=== PATIENT | male | born 1935 | race Caucasian/White ===

== ENCOUNTER 2020-07-23 13:15 | Emergency (ER) | payer MEDICARE ==
--- NOTE | 2020-07-23 13:54 | PCM.SN.2 ---
- Free Text/Narrative Note: ANESTHESIA SERVICES Date: 07/23/2020 Time: 1300 to 1317 Dx: Active Cardio-Pulmonary Resuscitation in progress Rx: Failed Resuscitation Procedure: Anesthesia Standby [[id number]] per physician / protocol request. Upon arrival of the ambulance, active CPR was in progress. The patient had an I -Gel airway device with 100% O2 per Ambu-bag in place with bilateral breath sounds. No active patient spontaneous respirations. Both eyes were dilated and non-responsive. No right Carotid pulse was felt without CPR. No emesis was seen in either the mouth or I-Gel. The ED physician checked for heart tones. The ECG was agonal without active CPR. The patient was declared by the ED physician. Sandor Gates CRNA, A
--- NOTE | 2020-07-26 20:33 | EDM.PDOC ---
ED [facility] GENERAL MEDICAL PROBLEM - General Chief Complaint: CPR in Progress Stated Complaint: CARDIAC ARREST Time Seen by Provider: 07/23/20 13:15 Source of Information: Reports: Patient History Limitations: Reports: No Limitations - History of Present Illness INITIAL COMMENTS - FREE TEXT/NARRATIVE: Patient is an 84 YO WM who presented to the ED via EMS with a witnessed cardiac arrest while he was at the [facility] at about 12:20 pm. CPR was started by bystanders and when EMS arrived at the scene patient was on PEA. Igel and I/O was inserted, CPR was continued, and en route to the ED patient was given 3 doses of epi and there was brief ROSC which was later lost. He arrived in the ED at 1315 and he is still on PEA, cold, cyanotic with fixed dilated pupil and no spontaneous breathing. 1 more round of resuscitation was done in the ED and since there was almost an hour of resuscitation, continuing it further deem futile and unnecessary. I did talked to the and family members and agreed to stop the resuscitation effort. Patient was pronounced at 1317. 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: CPR, IV/IO, Other Medication(s), Oxygen - Related Data Allergies Allergy/AdvReac Type Severity Reaction Status Date / Time No Known Allergies Allergy Verified 07/23/20 15:32 Home Meds: Home Meds Hydrochlorothiazide 25 mg PO DAILY 06/01/15 [History] Moexipril HCl [Moexipril] 15 mg PO DAILY 06/01/15 [History] atorvaSTATin [Lipitor] 20 mg PO DAILY 06/01/15 [History] Past Medical History Cardiovascular History: Reports: High Cholesterol, Hypertension Oncologic (Cancer) History: Reports: Colon ED ROS GENERAL - Review of Systems Review Of Systems: Unable To Obtain Reason Not Obtained: patien is on arrival ED EXAM, CPR - Physical Exam Exam: See Below General Appearance: Other (cyanotic) Eye Exam: Bilateral Eye: Other (Pulpils are fixed and dilated) Head: Atraumatic, Normocephalic Neck: Other (No carotid pulse) Respiratory Chest: Other (No spontaneous breathing) Cardiovascular: Other (No heart beat) GI/Abdominal Exam: Other (Absent bowel sound) Extremities: Other (cold and rigid) Skin Exam: Cyanosis Course - Vital Signs Text/Narrative:: see details of resuscitation under HPI Departure - Departure Time of Disposition: 13:20 Disposition: 20 Preliminary Cause of *Q: Cardiac Arrest Clinical Impression: Cardiac arrest, Respiratory arrest - Discharge Information Referrals: Sandor William MD [Primary Care Provider] - Forms: ED Department Discharge
== END 2020-07-23 21:50 | disposition expired ==
LOC: FB.ED 13:15
DX: I46.9 Cardiac arrest, cause unspecified (principal); E78.00 Pure hypercholesterolemia, unspecified; I10 Essential (primary) hypertension; Z79.899 Other long term (current) drug therapy
CPT/HCPCS: 92950; 99283; 99285-25